=== PATIENT | female | born 1970 | race Caucasian/White ===

== ENCOUNTER 2016-12-18 15:09 | Emergency (ER) | payer OTHER ==
[~2016-12-18] VITALS: Ht 170.2 cm; Wt 86.2 kg
[~2016-12-18 15:09] MED LIST: HYDROCODONE-AP1 EAC6 PO; NAPROSYN500 MG PO; NOHOMEMEDICATIONS; NORCO 5-325 TA1 EACH PO; PENICILLIN V P500 MG PO
[2016-12-18] MEDS ORDERED: BACTRIM DS TAB1 EACH PO (16:52)
[2016-12-18] MEDS ORDERED: IBUPROFEN 600600 M1 PO (16:52)
[2016-12-18] MEDS ORDERED: HYDROCODONE-AP1 EAC6 PO (16:52)
[2016-12-18 18:07] VITALS: BP 135/67
== END 2016-12-18 18:12 | disposition home or self-care (01) ==
LOC: ER 15:09
DX: L02.412 Cutaneous abscess of left axilla (principal); L02.411 Cutaneous abscess of right axilla; L03.112 Cellulitis of left axilla; L03.111 Cellulitis of right axilla; L02.211 Cutaneous abscess of abdominal wall; B95.61 Methicillin susceptible Staphylococcus aureus infection as the cause of diseases classified elsewhere; F17.210 Nicotine dependence, cigarettes, uncomplicated

== ENCOUNTER 2019-12-14 18:11 | Emergency (ER) | payer OTHER ==
[~2019-12-14] VITALS: Ht 172.7 cm; Wt 81.7 kg
[~2019-12-14 18:11] MED LIST changes: +BACTRIM DS TAB1 EACH PO; +HIBICLENS118 ML TOP; +IBUPROFEN 600600 M1 PO
[2019-12-14 18:16] VITALS: BP 104/71
[2019-12-14] MEDS ORDERED: IBU600 MG PO (20:24)
[2019-12-14] MEDS ORDERED: FLEXERIL PO (20:24)
[2019-12-14] MEDS ORDERED: LIDODERM1 EACH TOP (20:24)
== END 2019-12-14 20:58 | disposition home or self-care (01) ==
LOC: ER 18:11
DX: S20.212A Contusion of left front wall of thorax, initial encounter (principal); S13.4XXA Sprain of ligaments of cervical spine, initial encounter; F17.210 Nicotine dependence, cigarettes, uncomplicated; Z79.899 Other long term (current) drug therapy; V49.9XXA Car occupant (driver) (passenger) injured in unspecified traffic accident, initial encounter; Y93.89 Activity, other specified; Y92.89 Other specified places as the place of occurrence of the external cause; Y99.8 Other external cause status